=== PATIENT | male | born 1980 | race Caucasian/White ===

== ENCOUNTER 2020-11-11 15:00 | Emergency (ER) | payer BC, SELFPAY ==
--- NOTE | ~2020-11-11 | CT_ITS ---
EXAMINATION: CTA BRAIN/CAROTID DATE: 11/11/2020 17:40 INDICATION: Left frontal headache TECHNIQUE: Computed tomographic angiography (CTA) of the head and neck was performed with 100 mL Omni paque-350 intravenous contrast. Multiplanar reconstructions and maximum intensity projection 3D-recon structions of the carotid arteries and of the intracranial arteries were created by the technologist on a separate workstation. Precontrast CT of the head was also obtained. Automated exposure control and iterative reconstruction technique were employed.The dose-length product was 1762.09 mGy-cm. COMPARISON: None. FINDINGS: Carotid arteries: Normal caliber aortic arch with no dissection. No evident atherosclerotic plaque in the common or cer vical internal carotid arteries with 0% stenosis of the left and right carotid bulbs relative to norm al distal artery lumen diameter (NASCET criteria). The bilateral cervical internal carotid arteries a re tortuous. Mild bronchial wall thickening in the visualized upper lungs which are free of airspace disease. The superior mediastinum and cervical soft tissues are unremarkable. Minimal cervical spondy losis. Head: No acute intracranial hemorrhage, acute infarction or abnormal extra axial fluid collection. Ventricl es are normal and symmetric. No mass/mass effect. The orbits, paranasal sinuses and mastoid air cells are normal. No abnormally enhancing brain lesions. Intracranial arteries There is no hemodynamically significant stenosis in the vertebral, basilar and internal carotid arter ies. The left vertebral artery is mildly dominant.. There are no aneurysms identified. Both A1 and P 1 segments are patent. Cerebral arterial arborization appears symmetric. IMPRESSION: 1. 0% stenosis of both the left and right carotid bulbs relative to normal distal artery lumen diamet er (NASCET criteria). 2. Normal head CT and cerebral CT angiogram. Reviewed, dictated and finalized at location A. IMPRESSION: 1. 0% stenosis of both the left and right carotid bulbs relative to normal dist al artery lumen diameter (NASCET criteria). 2. Normal head CT and cerebral CT angiogram.
[2020-11-11 15:07] VITALS: BP 145/96; PULSE 68; RESP 16; TEMP 36.5; O2SAT 99
[2020-11-11 16:10] LABS: Anion Gap 11 mmol/L (8-16); Blood Urea Nitrogen 13 mg/dL (9-20); Calcium 9.5 mg/dL (8.4-10.2); Carbon Dioxide 24 mmol/L (22-30); Chloride 107 mmol/L (98-107); Estimated CRCL calculation 151 ml/min; Estimated Glomerular Filt Rate > 60; Glucose 83 mg/dL (75-110); Potassium 4.1 mmol/L (3.4-5.0); Sodium 142 mmol/L (137-145)
--- NOTE | 2020-11-11 17:05 | ED.HA ---
HPI - Headache General Chief Complaint: Headache <Derrick Austin MD - Last Filed: 11/11/20 17:07> Stated Complaint: LOPEZ X 1DAY <Derrick Austin MD - Last Filed: 11/11/20 17:07> Time Seen by Provider: 11/11/20 15:06 <Derrick Austin MD - Last Filed: 11/11/20 17:07> History of Present Illness HPI Narrative: Patient is a 39-year-old male who presents ER with headache. Left-sided. Goes from oriental orthodox to above the eye. It developed over 20 minutes yesterday and was pretty intense. Improved with some Excedrin. Today it reoccurs anytime he coughs or sneezes. Reports he was mowing the lawn prior to development of headache yesterday and he usually gets bad runny nose related to his allergies. He has been taking Mila. No change in vision or hearing. No focal weakness of an arm or leg. No history of migraine. <Derrick Austin MD - Last Filed: 11/11/20 17:07> Related Data Home Medications: Home Medications Medication Instructions Recorded Confirmed epinephrine 0.3 mg/0.3 mL 0.3 mg IM ONCE 05/26/19 02/12/20 injection, auto-injector zolpidem 5 mg tablet 5 mg PO ONCE 12/13/19 02/12/20 <Derrick Austin MD - Last Filed: 11/11/20 17:07> Allergies/Adverse Reactions: Allergies Allergy/AdvReac Type Severity Reaction Status Date / Time No Known Allergies Allergy Mild Verified 10/03/19 15:19 <Derrick Austin MD - Last Filed: 11/11/20 17:07> Review of Systems Review of Systems: All systems reviewed & are unremarkable except as noted in HPI and below <Derrick Austin MD - Last Filed: 11/11/20 17:07> Constitutional: Constitutional: Denies chills and Denies fever(s) <Derrick Austin MD - Last Filed: 11/11/20 17:07> Eyes: Eyes: Denies change in vision and Denies photophobia <Derrick Austin MD - Last Filed: 11/11/20 17:07> Neurologic: Denies syncope, Reports headache(s), Denies focal weakness and Denies numbness <Derrick Austin MD - Last Filed: 11/11/20 17:07> PMFSH Past Medical History Medical History: Medical History (Updated 11/11/20 @ 19:52 by Grady Renteria MD) RUBEN (generalized anxiety disorder) <Derrick Austin MD - Last Filed: 11/11/20 17:07> Family History Family History: Family History Grandparent Family history of premature coronary heart disease, Onset Age: 53 Family history of lung cancer Mother Family history of gastrointestinal disorder <Derrick Austin MD - Last Filed: 11/11/20 17:07> Social History Social History: Social History (Updated 02/12/20 @ 16:55 by Eulalia Bashir) Social History: Engaged Smoking status: Never smoker Second hand tobacco smoke exposure: No Alcohol intake: never Substance use: never Substance use type: does not use Gender identity (if verbalized by the patient): Male <Derrick Austin MD - Last Filed: 11/11/20 17:07> Exam Narrative: Exam Narrative: GENERAL: Well-appearing, well-nourished, and in no acute distress. HEAD: Normocephalic, atraumatic. EYES: PERRLA and EOMI. ENT: Mucous membranes moist. CHEST: Clear to auscultation. No respiratory distress. HEART: Regular rate and rhythm. Normal peripheral pulses. EXTREMITIES: Normal range of motion. No edema. SKIN: Warm, dry, no rash. NEURO: No focal deficits. Cranial nerves II through XII intact. Clear speech. Alert and oriented x3. PSYCH: Normal mood and affect. <Derrick Austin MD - Last Filed: 11/11/20 17:07> Course Course Emergency Course: CT is negative, headache is improved, cleared for discharge <Grady Renteria MD - Last Filed: 11/11/20 19:53> Vital Signs Vital signs: Vital Signs Temperature 36.5 C 11/11/20 15:07 Pulse Rate 68 11/11/20 15:07 Respiratory Rate 16 11/11/20 15:07 Blood Pressure 145/96 H 11/11/20 15:07 Pulse Oximetry 99 11/11/20 15:07 Temperature 36.5 C 11/11/20 15:07 P
[2020-11-11 19:36] VITALS: BP 140/92; PULSE 73; RESP 16; O2SAT 99
== END 2020-11-11 20:06 | disposition home or self-care (01) ==
PROVIDERS: Emergency Medicine; Emergency Provider Emergency Medicine; PCP Family Medicine
DX: R51.9 Headache, unspecified (principal)
CPT/HCPCS: 36415; 70496; 70498; 80048; 99284; Q9967

== ENCOUNTER 2021-01-10 14:28 | Outpatient (CLI) | payer BC, SELFPAY ==
--- NOTE | ~2021-01-10 | XR_ITS ---
XR foot LT min 3V DATE: 01/10/2021 14:51 INDICATION: Dorsal and medial foot pain TECHNIQUE: 4 views COMPARISON: None FINDINGS: There is narrowing at the first metatarsophalangeal joint. Fracture or dislocation, periosteal reaction or bone destruction is detected. IMPRESSION: No fracture or Reviewed, dictated and finalized at location A. IMPRESSION: No fracture or
== END 2021-01-10 14:29 | disposition home or self-care (01) ==
LOC: ANHIMG 14:35
PROVIDERS: PCP Family Medicine; Visit Provider Family Medicine
DX: M77.42 Metatarsalgia, left foot (principal)
CPT/HCPCS: 73630